=== PATIENT | male | born 1985 | race Caucasian/White ===

== ENCOUNTER 2017-01-02 11:24 | Emergency (ER) | payer BC, OTHER ==
[2017-01-02 11:45] VITALS: BP 130/92; PULSE 93; TEMP 99.1; BMI 36.2
[2017-01-02] MEDS ORDERED: IBUPROFEN 400 MG TABLET (FP) PO ONE (12:02)
[2017-01-02] MEDS: IBUPROFEN 600 MG TABLET (FP) PO ONE (12:03)
--- NOTE | 2017-01-02 12:33 | PDOC ---
History of Present Illness - General Chief Complaint: Injury Stated Complaint: LEFT LOWER LEG AND ANKLE PAIN Time Seen by Provider: 01/02/17 11:28 - History of Present Illness Initial Comments: 01/02/17 13:01 Chief complaint: Left ankle pain History of present illness: Patient twisted his left ankle yesterday playing baseball, while sliding into base. Persistent pain and swelling, most notably laterally. No distal numbness tingling pain or weakness. Difficulty weightbearing and ambulating Review of systems: No other injuries including pain or injuries to the head neck chest abdomen spine and pelvis or other extremities. No injury to the ipsilateral knee or hip Past medical history, healthy male: No active medical problems. Social/family history reviewed and noncontributory Physical exam: Alert and oriented well-developed well-nourished no acute distress cheerful and cooperative Afebrile, vital signs normal No injury noted other than the left ankle, which is diffusely swollen, with point tenderness over the distal fibula just above the lateral malleolus. Pulses are full. No distal sensory or motor deficits. No skin injury and no skin tenting. X-ray: Nondisplaced fracture of the distal fibula, several centimeters above the malleolus. No angulation or displacement. Through the cortex but not extending through the entire width of the bone. Ankle mortise is preserved Impression: Fracture distal fibula. Plan: Dr. Cazares consulted by phone. Recommended ankle support and crutches. Follow- up in the office tomorrow. Past History - Past Medical History Allergies/Adverse Reactions: Allergies Allergy/AdvReac Type Severity Reaction Status Date / Time No Known Allergies Allergy Unverified 01/02/17 11:26 Home Medications: Ambulatory Orders Ibuprofen 800 mg PO TID #20 tablet 01/02/17 Other medical history: DENIES - Psycho/Social/Smoking Cessation Hx Anxiety: No Suicidal Ideation: No Smoking History: Current every day smoker Have you smoked in the past 12 months: Yes Number of Cigarettes Smoked Daily: 1 Information on smoking cessation initiated: No 'Breaking Loose' booklet given: 01/02/17 Hx Alcohol Use: Yes Drug/Substance Use Hx: Yes Substance Use Type: Alcohol *Physical Exam - Vital Signs Last Vital Signs Temp Pulse Resp BP Pulse Ox 99.1 F 93 H 16 130/92 99 01/02/17 11:26 01/02/17 11:26 01/02/17 11:26 01/02/17 11:26 01/02/17 11:26 ED Treatment Course - RADIOLOGY Radiology Studies Ordered: Category Date Time Status ANKLE-LEFT [RAD] Stat Radiology 01/02/17 11:52 Taken - Medications Given in the ED: ED Medications Discontinued Medications Generic Name Dose Route Start Last Admin Trade Name Yamini PRN Reason Stop Dose Admin Ibuprofen 800 mg 01/02/17 11:52 01/02/17 12:03 Motrin - PO 01/02/17 11:53 800 mg ONCE ONE Administration Medical Decision Making - Medical Decision Making 01/02/17 13:06 Johnson bandage applied. Crutches and nonweightbearing. Orthopedic follow-up as directed. Patient fully ambulatory and in no pain or other discomfort upon discharge to follow-up with the orthopedist tomorrow. *DC/Admit/Observation/Transfer Diagnosis at time of Disposition: Fracture of ankle, closed Qualifiers: Encounter type: initial encounter Laterality: left Qualified Code(s): S82.892A - Other fracture of left lower leg, initial encounter for closed fracture - Discharge Dispostion Disposition: HOME Condition at time of disposition: Improved Admit: No - Prescriptions Prescriptions: Ibuprofen 800 mg PO TID #20 tablet - Referrals Referrals: Kurt Newell MD [Staff Physician] - 1 week - Patient Instructions Printed Discharge Instructions: DI for Ankle Fracture, How to Use Crutches Additional Instructions: Rest, ice, elevate, nonweightbearing until further evaluation by pathology specialist. His crutches as directed. Limited ambulation See orthopedist for further evaluation and treatment within 1 week. - Post Discharge Activity Work/School Note: Back to Work
== END 2017-01-02 12:40 | disposition home or self-care (01) ==
LOC: FER 11:24
DX: S82.832A Other fracture of upper and lower end of left fibula, initial encounter for closed fracture (principal); W18.01XA Striking against sports equipment with subsequent fall, initial encounter; Y93.64 Activity, baseball; Y92.320 Baseball field as the place of occurrence of the external cause; F17.210 Nicotine dependence, cigarettes, uncomplicated
CPT/HCPCS: 73610-TC-LT; 99281-25

== ENCOUNTER 2017-02-09 19:45 | Emergency (ER) | payer OTHER ==
[2017-02-09 19:50] VITALS: BP 132/89; PULSE 90; TEMP 98; BMI 34.8
[2017-02-09] MEDS ORDERED: predniSONE 20 MG TABLET (UD) PO ONE (19:53)
--- NOTE | 2017-02-09 19:53 | PDOC ---
History of Present Illness - General History Source: Patient Exam Limitations: No Limitations - History of Present Illness Initial Comments: 02/09/17 19:58 The patient is a 31 year old male, with a significant past medical history of, who presents to the emergency department with hives on both of his arms. The patient reports he has not consumed any new foods, drinks, medications or worn any new clothes. He reports that nothing in his schedule is out of the ordinary. He denies chest pain, shortness of breath,wheezing, headache and dizziness. He denies fever, chills,runny nose, itchy eyes, nausea, vomit, diarrhea and constipation. PAST MEDICAL HISTORY: no significant history PAST SURGICAL HISTORY: no significant history FAMILY HISTORY: no pertinent history SOCIAL HISTORY: Pt lives with family and is employed. MEDICATIONS: reviewed ALLERGIES: None as per nursing notes General: No fevers or chills, no weakness, no weight loss HEENT: No change in vision. No sore throat,. No ear pain CardioVascular: No chest pain or shortness of breath Respiratory:No cough, or wheezing. Gastrointestinal: no nausea, vomiting, diarrhea or constipation, No rectal bleeding Genitourinary: No dysuria, hematuria, or frequency Musculoskeletal: No joint or muscle pain or swelling Neurologic: No headache, vertigo, dizziness or loss of consciousness Psychiatric: no depression Skin: +Rash No easy bruising Endocrine: no increased thirst or abnormal weight change Allergic: +Hives All other systems reviewed and normal GENERAL: The patient is awake, alert, and fully oriented, in no acute distress. HEAD: Normal with no signs of trauma. EYES: Pupils equal, round and reactive to light, extraocular movements intact, sclera anicteric, conjunctiva clear. EXTREMITIES: Normal range of motion, no edema. NEUROLOGICAL: Normal speech, normal gait. PSYCH: Normal mood, normal affect. SKIN: +There is a rash consistent with hives on the flexor surface of arms bilaterally. Warm, Dry, normal turgor <Sakshi June - Last Filed: 02/09/17 19:58> - General History Source: Patient Exam Limitations: No Limitations - History of Present Illness Initial Comments: 02/09/17 20:07 A portion of this note was documented by scribe services under my direction. I have reviewed the details of the note, within reason, and agree with the documentation. The case summary and management plan written by me. Assessment and plan: This is a 31-year-old male who comes in complaining of a rash on his arms bilateral. There is high is on the flexor surfaces of his arms bilateral. There is no other complaints there is no shortness of breath or any abdominal pain. Patient denies history of similar symptoms in the past. Patient denies any exposure to any new foods lotions creams or ointments soaps or anything else. Patient took Benadryl prior to coming in and rash is improving. Patient given a dose of Benadryl and a prescription for Medrol Dosepak was sent to his pharmacy. Patient was discharged home. <Eulalio Silverio I - Last Filed: 02/09/17 20:10> - General Chief Complaint: Rash Stated Complaint: RASH Time Seen by Provider: 02/09/17 19:48 Past History <Sakshi June - Last Filed: 02/09/17 19:58> - Psycho/Social/Smoking Cessation Hx Anxiety: No Suicidal Ideation: No Smoking History: Current every day smoker Have you smoked in the past 12 months: Yes Number of Cigarettes Smoked Daily: 1 'Breaking Loose' booklet given: 01/02/17 Hx Alcohol Use: Yes Drug/Substance Use Hx: Yes Substance Use Type: Alcohol <Eulalio Silverio I - Last Filed: 02/09/17 20:10> - Past Medical History Allergies/Adverse Reactions: Allergies Allergy/AdvReac Type Severity Reaction Status Date / Time No Known Allergies Allergy Unverified 01/02/17 11:26 Home Medications: Ambulatory Orders Methylprednisolone [Medrol Dose Gar[place]] 4 mg PO ASDIR #21 tablet 02/09/17 *Physical Exam - Vital Signs Last Vital Signs Temp Pulse Resp BP Pulse Ox 98 F 90 14 132/89 98 02/09/17 19:46 02/09/17 19:46 02/09/17 19:46 02/09/17 19:46 02/09/17 19:46 <Sakshi June - Last Filed: 02/09/17 19:58> ED Treatment Course - Medications Given in the ED: ED Medications Discontinued Medications Generic Name Dose Route Start Last Admin Trade Name Freq PRN Reason Stop Dose Admin Prednisone 60 mg 02/09/17 19:53 02/09/17 19:54 Deltasone - PO 02/09/17 19:54 60 mg ONCE ONE Administration <Sakshi June - Last Filed: 02/09/17 19:58> *DC/Admit/Observation/Transfer - Attestations Scribe Attestion: 02/09/17 19:58 Documentation prepared by YUNIOR Simmons, acting as medical csr for Eulalio Silverio MD. <Sakshi June - Last Filed: 02/09/17 19:58> - Discharge Dispostion Admit: No <Eulalio Silverio I - Last Filed: 02/09/17 20:10> Diagnosis at time of Disposition: Hives - Discharge Dispostion Disposition: HOME Condition at time of disposition: Good - Prescriptions Prescriptions: Methylprednisolone [Medrol Dose [place]] 4 mg PO ASDIR #21 tablet - Patient Instructions Printed Discharge Instructions: Hives Additional Instructions: Get the prescription for the Medrol Dosepak filled and take as directed by the Dosepak. In addition to that if you have any return of symptoms you can also take an antihistamine such as Benadryl or longer acting non-drowsy antihistamine such as Jessy or Claritin. They are all [id number] and take as directed on the bottle or box. Return to the emergency department immediately with ANY new, persistent or worsening symptoms. Continue any medications as previously prescribed by your physician. You should follow up with your primary doctor as soon as possible regarding today's emergency department visit. . Please make sure your doctor reviews the results of your emergency evaluation. Thank you for coming to the Emergency Department today for your care. It was a pleasure to see you today. Please note that your evaluation is INCOMPLETE until you follow-up with your doctor.
[2017-02-09] MEDS ORDERED: predniSONE 20 MG TABLET (UD) ONE (19:56)
== END 2017-02-09 19:58 | disposition home or self-care (01) ==
LOC: FER 19:45
DX: L50.9 Urticaria, unspecified (principal); F17.210 Nicotine dependence, cigarettes, uncomplicated
CPT/HCPCS: 99282-25

== ENCOUNTER 2017-04-01 20:22 | Emergency (ER) | payer OTHER ==
--- NOTE | 2017-04-01 20:25 | PDOC ---
History of Present Illness - General Chief Complaint: Pain, Acute Stated Complaint: TWISTED LEFT ANKLE Time Seen by Provider: 04/01/17 20:25 History Source: Patient Exam Limitations: No Limitations - History of Present Illness Initial Comments: 04/01/17 20:39 This 32yo M with past medical history of left distal fibular fracture above the malleolus on 01/02/17 presents to us after re-injuring his left lateral ankle. He states he was trotting while playing baseball between bases, and possibly inverted ankle. He heard a loud crack, and felt severe pain in his lateral ankle rated 6/10. He denies knee or hip pain, lightheadedness, dizziness, tingling or numbness in his left foot or toes. Patient is a 1/2 ppd smoker for 16 years. Denies heavy alcohol use. Occurred: reports: this evening Severity: Yes: mild Lower Extremity Pain Location: left: ankle (lateral) Method of Injury: Yes: sports injury Modifying Factors: improves with: immobilization, rest Lower Ext. Injury Location - Specific Injury Location Ankle: right no evidence of injury, right normal inspection, right normal range of motion, right non-tender, left bone tenderness (above lateral malleolus), left soft tissue tenderness, left ecchymosis, left limited range of motion, left pain, left swelling Extremity Pain Location - Extremity Pain Location Extremity Pain Locations: left: ankle Past History - Past Medical History Allergies/Adverse Reactions: Allergies Allergy/AdvReac Type Severity Reaction Status Date / Time No Known Allergies Allergy Verified 04/01/17 20:24 Home Medications: Ambulatory Orders NK [No Known Home Medication] 04/01/17 - Psycho/Social/Smoking Cessation Hx Anxiety: No Suicidal Ideation: No Smoking History: Current every day smoker Have you smoked in the past 12 months: Yes Number of Cigarettes Smoked Daily: 10 'Breaking Loose' booklet given: 01/02/17 Hx Alcohol Use: Yes Drug/Substance Use Hx: Yes Substance Use Type: Alcohol Review of Systems - Review of Systems Able to Perform ROS?: Yes Is the patient limited Vincentian proficient: No Respiratory: No: Shortness of Breath, SOB with Exertion, SOB at Rest Cardiac (ROS): No: Chest Pain, Lightheadedness, Syncope Musculoskeletal: Yes: Joint Pain, Joint Swelling, Muscle Weakness. No: Back Pain Integumentary: Yes: Bruising Neurological: No: Headache, Numbness, Tingling *Physical Exam - Physical Exam General Appearance: Yes: Nourished HEENT: positive: EOMI, ALANNA, Normal ENT Inspection Respiratory/Chest: positive: Lungs Clear, Normal Breath Sounds. negative: Respiratory Distress, Accessory Muscle Use, Crackles, Rales, Rhonchi, Stridor, Wheezing Cardiovascular: positive: Regular Rhythm, Regular Rate. negative: Murmur, Tachycardia, Irregularly Irregular, Irregular Vascular Pulses: Femoral (R): 4+, Femoral (L): 4+, Dorsalis-Pedis (R): 4+, Doralis-Pedis (L): 3+ Gastrointestinal/Abdominal: positive: Normal Bowel Sounds, Soft. negative: Tender Musculoskeletal: negative: CVA Tenderness Extremity: positive: Normal Capillary Refill, Tender (l lateral ankle), Pedal Edema, Swelling, Erythema. negative: Delayed Capillary Refill Neurologic: positive: case management assistant II-XII NML intact, Fully Oriented, Alert, Normal Mood/ Affect, Normal Response, Other (l ankle eversion weakness 4/5 & pain) Medical Decision Making - Medical Decision Making 04/01/17 20:53 this 32yo M with a PMHx of left fibular nondisplaced fracture presents due to left ankle inversion 2/2 sports injury. 1. left fibula re-injury -left ankle xray -motrin for pain prn 04/01/17 21:01 Left ankle x-ray interpreted by Dr. Bartlett of the radiology staff: Small avulsion fracture of the distal tibia. Although patient's symptoms are located in the lateral aspect of the joint, we will still stabilize the joint with Paul wrap ( patient requested to defer Ortho-Glass or fixed splint since he is able to weight-bear without significant pain). Paul wrap applied to the left ankle with relief of his significant relief of his pain. Patient will follow-up with [facility] orthopedic group within the next few days *DC/Admit/Observation/Transfer Diagnosis at time of Disposition: Avulsion fracture of medial malleolus of left tibia Qualifiers: Encounter type: initial encounter Fracture type: closed Qualified Code(s): S82.52XA - Displaced fracture of medial malleolus of left tibia, initial encounter for closed fracture - Discharge Dispostion Disposition: HOME Condition at time of disposition: Stable - Patient Instructions Printed Discharge Instructions: DI for Ankle Fracture Additional Instructions: paul wrap during day until seen by orthopedist elevate/ice to left lower leg for the next 2 days avoid excessive walking/standing call Dr Newell group tomorrow AM to arrange followup within 2-3 days
[2017-04-01 20:30] VITALS: BP 157/103; PULSE 95; TEMP 98; BMI 37.3
[2017-04-01] MEDS ORDERED: IBUPROFEN 600 MG TABLET (FP) PO ONE ×2 (21:18→21:19)
== END 2017-04-01 22:09 | disposition home or self-care (01) ==
LOC: FER 20:22
DX: S82.52XA Displaced fracture of medial malleolus of left tibia, initial encounter for closed fracture (principal); X50.0XXA Overexertion from strenuous movement or load, initial encounter; Y93.67 Activity, basketball; Y92.310 Basketball court as the place of occurrence of the external cause
CPT/HCPCS: 73610-TC-LT; 99281-25

== ENCOUNTER 2021-09-14 06:08 | Day surgery (SDC) | payer OTHER ==
[2021-09-06 10:33] VITALS: BMI 37.3
[2021-09-14] MEDS ORDERED: ROPIVACAINE HCL/PF 100 MG/20 ML VIAL ONE ×2 (06:39→07:00)
[2021-09-14] MEDS ORDERED: MIDAZOLAM HCL 2 MG/2 ML SINGLE DOSE VIAL ONE (06:39)
[2021-09-14] MEDS ORDERED: PROPOFOL 20 ML ONE ×2 (07:31)
[2021-09-14] MEDS ORDERED: SUCCINYLCHOLINE CHLORIDE 200 MG/10 ML SYRINGE ONE (07:31)
[2021-09-14] MEDS ORDERED: DEXMEDETOMIDINE HCL 200 MCG/2 ML IVPB ONE (07:41)
[2021-09-14] MEDS ORDERED: GLYCOPYRROLATE 0.2 MG/1 ML VIAL ONE (07:48)
[2021-09-14] MEDS ORDERED: KETAMINE HCL 200 MG/20 ML VIAL ONE (07:48)
[2021-09-14] MEDS ORDERED: LIDOCAINE HCL/PF 2% SDV 5ML VIAL ONE (07:48)
[2021-09-14] MEDS ORDERED: ePHEDrine SULFATE 50 MG/1 ML AMPULE ONE ×2 (08:39→08:46)
[2021-09-14] MEDS ORDERED: HYDROmorphone HCL/PF 1 MG/ML VIAL ONE (10:20)
[2021-09-14] MEDS ORDERED: EPINEPHrine 1:1,000 1 MG/1 ML - 30ML VIAL (INJECTION) ONE (10:51)
[2021-09-14] MEDS ORDERED: ACETAMINOPHEN 1000 MG/100 ML BAG IVPB ONE (11:23)
[2021-09-14] MEDS ORDERED: oxyCODONE HCL 5 MG TABLET PO PRN (11:23)
[2021-09-14] MEDS ORDERED: KETOROLAC TROMETHAMINE 30 MG/1 ML VIAL IVPUSH PRN (11:28)
[2021-09-14] MEDS ORDERED: LACTATED RINGERS SOLUTION 1,000 ML IV SCH (11:30)
[2021-09-14] MEDS ORDERED: KETOROLAC TROMETHAMINE 30 MG/1 ML VIAL IVPUSH SCH (11:30)
[2021-09-14] MEDS ORDERED: ACETAMINOPHEN INJECTION 100 ML IVPB ONE (11:30)
[2021-09-14 13:16] VITALS: TEMP 98
[2021-09-14 13:21] VITALS: PULSE 82
[2021-09-14 14:15] VITALS: BP 115/70
== END 2021-09-14 14:25 | disposition home or self-care (01) ==
LOC: FASU 06:08
PROVIDERS: ATTEND Orthopaedic Surgery Sports Medicine
PROC: 0LM14ZZ Reattachment of Right Shoulder Tendon, Percutaneous Endoscopic Approach (ICD-10-PCS; principal; 2021-09-14 08:55)
PROC: 0LS34ZZ Reposition Right Upper Arm Tendon, Percutaneous Endoscopic Approach (ICD-10-PCS; 2021-09-14 08:55)
DX: S43.431A Superior glenoid labrum lesion of right shoulder, initial encounter (principal); X58.XXXA Exposure to other specified factors, initial encounter; Y93.9 Activity, unspecified; Y92.9 Unspecified place or not applicable
CPT/HCPCS: 94760; J0131